=== PATIENT | male | born 1945 | race Caucasian/White ===

== ENCOUNTER 2017-01-03 21:45 | Emergency (ER) | payer MEDICARE, OTHER ==
[2017-01-03 22:34] LABS: Hematocrit 36.6 % (42.0-52.0); Hemoglobin 12.6 gm/dL (13.5-18.0); Mean Cell Volume 84.9 fl (78-100); Mean Corpuscular Hemoglobin 29.2 pg (27-31); Mean Corpuscular Hgb Conc 34.4 g/dl (32-36); Mean Platelet Volume 9.9 fl (6.0-9.5); Neutrophil # 4.4 K/mm3 (1.3-6.0); Neutrophil % 70.8 % (42-75.0); Platelet Count 180 K/mm3 (150-450); Red Blood Count 4.31 M/mm3 (4.7-6.0); Red Cell Distribution Width 13.9 % (11.5-14.0); White Blood Count 6.2 K/mm3 (4.0-10.5)
[2017-01-03 22:58] LABS: Albumin * 4.1 gm/dl (3.4-5.0); Anion Gap 15.4 mmol/L (6.8-13.8); BUN/Creatinine Ratio 12.4 (9.0-21.6); Bilirubin, Total 0.8 mg/dL (0.0-1.1); Ca. Corrected For Albumin 8.3 mg/dL (8.4-10.2); Calcium * 8.7 mg/dL (7.9-10.9); Carbon Dioxide 26.9 mmol/L (24-32.6); Potassium 3.3 mmol/L (3.4-4.6); Total Protein 7.6 gm/dL (6.2-8.2)
--- NOTE | 2017-01-03 23:23 | ERNOTE ---
Lower Extremity HPI - Narrative Date of Service: 01/03/17 - General Lower Extremities Pain: leg: right Time Seen by Provider: 01/03/17 22:08 - Immun/Allergies/Home Medications Immunizations: IMMUNIZATION HX Immunizations Up to Date Yes Allergies/Adverse Reactions: Allergies Allergy/AdvReac Type Severity Reaction Status Date / Time No Known Allergies Allergy Unverified 01/03/17 21:56 Home Medications: HOME MEDICATIONS Amiodarone HCl [Cordarone] 200 mg PO BID 01/03/17 [Last Taken Unknown] Amlodipine Besylate 10 mg PO DAILY 01/03/17 [Last Taken Unknown] Aspirin [Aspirin Chewable] 81 mg PO DAILY 01/03/17 [Last Taken Unknown] Famotidine [Pepcid] 40 mg PO DAILY 01/03/17 [Last Taken Unknown] Losartan Potassium [Cozaar] 100 mg PO DAILY 01/03/17 [Last Taken Unknown] Montelukast Sodium [Singulair] 10 mg PO DAILY 01/03/17 [Last Taken Unknown] NK [No Home Medication] 01/03/17 [Last Taken Unknown] - History of Present Illness Narrative: This is a 71-year-old gentleman with a history of congestive heart failure and atrial fibrillation who comes to the emergency department complaining of right leg swelling which has been going on for several weeks. The patient says actually that he's had chronic swelling in his leg the right greater than the left for as long as he is known to himself. The patient says that he was rolled over by a horse 3 weeks ago. He sustained ecchymoses and bruises to his entire right side. He is on a blood thinner. The patient states that he has noticed some small blisters forming on his shins of his right leg. He says that his granddaughter who is a nurse instructed him to come to the emergency department. He does say that the area on his right dorsey where he is scratching is quite itchy. The scratching seems to bring up the little vesicles. He has no chest pain no nausea or vomiting. He does have shortness of breath which is chronic for him. He has chronic lung disease. He says this is no different now than it has been for him previously. Review of Systems - Review of Systems Constitutional: Present: no symptoms reported EYE: Present: no symptoms reported ENT: Present: no symptoms reported Respiratory: Present: shortness of breath, other - unchanged from previous Cardiology: Present: no symptoms reported Gastrointestinal/Abdominal: Present: no symptoms reported Genitourinary: Present: no symptoms reported Musculoskeletal: Present: no symptoms reported Skin: Present: other - patient has itchiness and small vesicles which form on the dorsey right leg Neurological: Present: no symptoms reported Endocrine: Present: no symptoms reported Hematologic/Lymphatic: Present: no symptoms reported Psych: Present: no symptoms reported - Patient's Past Medical History Patient History - Cardiac/Respiratory: Atrial Fibrillation, COPD, Hypertension Patient History - Cancer: No Hx of Cancer Patient History - Surgical Procedures: Appendectomy, Cardiac stent - Social History Living Situations: home Psych History: No pertinent hx Smoking Status: Former smoker Alcohol Use: none Drug Use: none - Immunizations Immunizations Up to Date: Yes Physical Exam - Physical Exam General Appearance: Present: wd/wn, alert, no apparent distress Head Exam: Present: normal inspection, no evidence of injury Ears, Nose, Throat: Present: normal ENT inspection Neck: Present: normal inspection, nontender Respiratory: Present: no respiratory distress, normal breath sounds, no accessory muscle use, chest nontender, lungs clear Cardiovascular/Chest: Present: regular rate, rhythm, no murmur, normal peripheral pulses, other - I hear frequent ectopy but this is not an irregular heartbeat Gastrointestinal/Abdominal: Present: normal bowel sounds, nontender, nondistended, soft, no organomegaly Back Exam: Present: normal inspection, normal range of motion, no CVA tenderness , no vertebral tenderness Extremity Exam: Present: non-tender, normal range of motion, other - patient has perhaps trace to 1+ pretibial edema in the right lower extremity trace left lower extremity patient has chronic stasis changes to the right dorsey anteriorly. There are excoriations. In the excoriations he is tiny vesicles largest of which measures 3-55 mm. There is no sign of cellulitis. The area is not warmer than the surrounding tissue. Neurological Exam: Present: alert, oriented, normal mood/affect Skin Exam: Present: other - patient has ecchymoses to the right flank right hip right lateral thigh Lymphatic Exam: Present: no adenopathy ED Progress - Results and Orders Patient's Lab Results:: I have reviewed the patient's lab results. - Vital Signs Patient's Vital Signs:: I have reviewed the patient's vital signs. Vital Signs: Vital Signs 01/03/17 21:51 Temperature 36.9 C Pulse Rate 95 Respiratory 22 H Rate Blood Pressure 144/79 O2 Sat by Pulse 97 Oximetry - Progress/Reassessment Chief Complaint: Lower Extremity Pain/ Injury Plan - Plan Plan: I discussed with the patient that I do not see any signs of heart failure. He admits that his right leg often swells more than the left. He says that he forms vesicles sometimes. Certainly his BNP is where it should be. His lungs are actually clear. He has no signs of congestive heart failure here. I think whatever is going on is well compensated. He does have tiny vesicles which form in the area where he is scratching. The area way of scratching appears to be the area of chronic venous stasis. I suspect that the hyperpigmentation associated with the venous stasis stasis as well as local inflammation is causing itchiness. I've advised him to use compressive dressing. I have suggested that he follow-up with his primary care doctor. Departure Clinical Impression: Rash - Departure Disposition: Home self-care Condition: Stable Additional Instructions: As we discussed, you can use Benadryl to help with the itching. It is very important that you avoid scratching this area. Scratching will continue to cause wounds which will heal and cause itching as they heal. It also predisposes you to developing an infection. I want you to use a light compressive Son wrap to the area. Call your family doctor and set up a follow-up appointment. Certainly if you develop new or worrisome symptoms she should return to the ER. Referrals: Parish Coello MD [Primary Care Provider] -
[2017-01-04 00:46] VITALS: BP 130/77
== END 2017-01-03 23:30 | disposition home or self-care (01) ==
LOC: ER 21:45
DX: R21 Rash and other nonspecific skin eruption (principal); Z87.891 Personal history of nicotine dependence; Z95.5 Presence of coronary angioplasty implant and graft